=== PATIENT | female | born 1965 | race African-American/Black ===

== ENCOUNTER 2024-09-18 06:58 | Day surgery (SDC) | payer SELFPAY ==
[2024-09-18] VITALS (12 sets, daily range): BP systolic 74–136; BP diastolic 41–77; PULSE 50–63; RESP 16–18; TEMP 36.1–36.3; O2SAT 97–100; BMI 24.9
--- NOTE | 2024-09-18 06:49 | PCM.HP.BLA ---
History and Physical Date of Admission: 09/18/24 Date of Service: 09/17/24 MR#: [id number] Acct: [id number] Name: LEONORA TAVERAS Rep #: [id number] : 1965 Provider: Dr. Nickie West MD Age/Sex: 59/F Location: [facility] Status: Signed Intake Vital Signs 09/17/2508:38 Height 5 ft 5 in Weight: 152 lb 6 oz BMI 25.3 BP 133/71 H Blood Pressure Location Rt brachial Position Sitting Respiration 17 Pulse 64 Pulse Source Monitor Temp 97.5 F L Temp Source Temporal Pulse Oximetry (%) 99 Oxygen Delivery Method room air Intake Visit Reasons: LYMPH NODE BIOPSY- CONSULT-selfpay Chief Complaint: lymphnode biopsy Accompanied by: son and friend Is patient in pain?: No Allergies Quinolones Allergy (Mild, Verified 09/17/24 09:39) Rash Medications ?Medication ?Instructions ?Recorded ?Confirmed ?Type NATRIXAM 1 tab PO DAILY 09/10/24 09/17/24 History PFSH Medical History (Updated 09/17/24 @ 12:[address] Nickie West MD) Non-Hodgkin lymphoma Enlarged lymph nodes in armpit Wears glasses Post-menopausal Non-smoker History of echocardiogram Prediabetes HTN (hypertension) Surgical History S/P section S/P total abdominal hysterectomy Family History Mother HypertensionFather Diabetes Social History Smoking Status: Never smoker alcohol intake: never HPI HPI HPI: 59-year-old female presents for axillary lymph node excision due to non-Hodgkin's lymphoma. Patient's cousin does live in the area-Dr. Steph Keenan- and patient traveled from her home in [facility] for treatment. Patient has a upcoming appointment with oncology September 22, 2024. Patient had a percutaneous biopsy of abdominal lymph node which was consistent with non-Hodgkin's lymphoma and patient also had CT chest which showed bilateral axillary lymphadenopathy done previously in [facility]. Patient does admit to having some issues with headache with this did initially have some blood in the urine that started in the process of the workup-several months ago. ROS General General: Yes weight change and fatigue; No appetite, colon cancer, breast cancer or weakness HEENT HEENT: No difficulty swallowing, eye injury, eye surgery, swollen glands or hoarseness Endo Endocrine: No thyroid disease, diabetes mellitus, thyroid cancer, Hair loss, heat intolerance or cold intolerance Skin Skin: No rash or changing moles Musc Musculoskeletal: Yes back problems; No arthritis, rheumatoid arthritis, gout or joint pain Cardio Cardiovascular: Yes high blood pressure; No murmur, pacemaker, heart disease, atrial fibrillation, heart attack, heart stent, palpitations, shortness of breath with exertion or chest pain Psych Psychiatric: No depression, anxiety or hearing voices Resp Respiratory: No shortness of breath, No sleep apnea, No cough, No COPD, No asthma, No emphysema and No wheezing Gastro Gastrointestinal: No abdominal pain, No nausea or vomiting, No diarrhea, No constipation, No blood in stool, No acid reflux, No hemorrhoids, Yes ulcers, No gallbladder problem and No black,tarry stools Teofilo Hematologic: No blood thinners, No blood disorders, No bleeding, No anemia and No blood clots Neuro Neurologic: No numbness, No tingling and No weakness Exam Const General: cooperative, healthy appearing, comfortable and no acute distress HENMD Head: normocephalic and atraumatic Neck Neck: supple Chest Other: Bilateral axillary adenopathy more difficult to appreciate on the left than the right on exam but both axillas have adenopathy per CAT scan. Resp Effort & Inspection: normal respiratory effort Cardio Rate: regular rate GI Inspection: non-distended Skin General: no rashes or lesions noted Neuro General: CN's II-XI intact bilaterally Extrem General: normal to inspection Psych Mental Status: mental status grossly normal Attitude: cooperative Assessment and Plan Assessment and Plan (1) Non-Hodgkin lymphoma: Status: Acute (2) Enlarged lymph nodes in armpit: Status: Acute Plan Will plan for excision of right axillary lymph node in OR and send to pathology for further testing as requested per oncology for guidance of treatment. Discussed procedure including but not limited to risk of bleeding, infection, need for further procedure. Patient no current questions this time. Patient is scheduled for tomorrow for excision. Nickie West M.D. Pager: [phone] [facility] [address] [place] [address], [facility], [address] [place] [address] Office: [phone] Coding Level of Care Code Attention Mat Diagnoses Non-Hodgkin lymphoma C85.90 Enlarged lymph nodes in armpit R59.0 Comment level 3 new, but self pay with OR tomorrow-not sure if bundled 09/17/24 1220 <Electronically signed by Nickie West MD> Date Nickie West MD
--- NOTE | 2024-09-18 07:11 | PCM.PRE.AN2 ---
ASA Classification* ASA Classification ASA Classification: 2 Assessment & Plan Anesthesia* Anesthesia Assessment Anesthesia Assessment: Discussed sedation and/or anesthesia options, risks, benefits, and alternatives with patient/parents/legal guardian/POA. Questions invited. The patient/parents/legal guardian/POA seems to understand and agrees to proceed with anesthesia plan. Reviewed the physical assessment, medical history, allergy history and patient home medications list prior to surgery/procedure/anesthetic and documented any changes. Performed airway and anesthesia risk assessments. Anesthesia Type Anesthesia Type: MAC Anesthesia Focused Assessment* Airway Assessment Mouth opens: >3 cm Mallampati Score: II Focused Labs Anesthesia Preop lab: CBC CHEMISTRY COAG Pre-Assessment Diagnosis/Proposed Procedure Planned Operative Procedure(s): RIGHT POSS LEFT AXILLARY LYMPH NODE EXCISIONAL BIOPSY Anesthesia History Anesthesia History - imaging engineer: Anesthesia History - imaging engineer Hx Hospitalization Yes: 03/2024 PNEUMONIA 09/10/24 11:23 Any Problems With Anesthesia No 09/10/24 11:23 Cholinesterase deficiency No 09/10/24 11:23 You/Your Family Experience No 09/10/24 11:23 fever (hyperthermia) with Relationship Recent Exposure to Contagious Disease Does patient have nerve No 09/10/24 11:23 stimulator Patient instructed to have device shut off --Does patient have Pacemaker or ICD? When Was Last Pacemaker Check QUESTION #4 FULL TEXT: You/Your Family Experience fever (hyperthermia) with Anesthesia Last Oral Intake Last Oral intake: Last Oral Intake NPO since Meds taken in AM with sips of water? Meds patient instructed to take am of surgery PONV PONV - imaging engineer: PONV - imaging engineer Female Yes 09/10/24 11:23 HX of Motion Sickness No 09/10/24 11:23 HX of N/V After Surgery No 09/10/24 11:23 Non-Smoker Yes 09/10/24 11:23 Duration of Surgery greater Yes 09/10/24 11:23 than 60 minutes Number of Risk Factors 3 09/10/24 11:23 PONV Score Moderate Risk 09/10/24 11:23 Height & Weight Height & Weight: Anesthesia: Height & Weight Height 5 ft 5 in 09/17/24 09:38 Respiratory Assessment Respiratory Assessment - imaging engineer: Respiratory Tract Infection Hx - imaging engineer Hx Respiratory Tract Infection No 09/10/24 11:23 STOP Sleep Apnea STOP Sleep Apnea - imaging engineer: STOP Sleep Apnea - imaging engineer Hx Hypertension Yes: CONTROLLED WITH MED 09/10/24 11:23 Hx Sleep Apnea No 09/10/24 11:23 CPAP BIPAP Do you snore loudly (louder No 09/10/24 11:23 than talking or can be heard Do you often feel tired/ No 09/10/24 11:23 fatigued/ sleepy during daytime? Has anyone observed you stop No 09/10/24 11:23 breathing during sleep? STOP Results Negative 09/10/24 11:23 QUESTION #5 FULL TEXT : Do you snore loudly (louder than talking or can be heard through closed doors)? Tobacco Use History Tobacco Use History - imaging engineer: Tobacco Use History - imaging engineer Tobacco Use Smoking Status Never smoker 09/10/24 11:23 Hx Tobacco Use No 09/10/24 11:23 Years Smoking Packs Smoked per Day Smoking Cessation Date was within the last 15 years Hx Smoking Cessation Date Hx Smoking Cessation Counseling Hematologic Medial History Hematologic Hx - imaging engineer: Hematologic Medical Hx - apparel merchandiser Hx of Blood Transfusion No 09/10/24 11:23 Hx of Transfusion in last 3 No 09/10/24 11:23 Months Date of Last Transfusion (if within last 3 months) Ever experience any problems No 09/10/24 11:23 with transfusion(s)? Specify any problems Hx of Preganancy in last 3 No 09/10/24 11:23 Months Nurse Filling Out Transfusion DSCHRIBER 09/10/24 11:23 & Questions: Date: 09/10/24 09/10/24 11:23 Time: 11:09/10/24 11:23 Patient unable to answer at this time (ie. confused, unrespo /Reproduction History /Reproductive History - imaging engineer: /Reproductive Hx- imaging engineer Hx Now No 09/10/24 11:23 Gestational Age (in weeks): EDC: Hx Hx Para Hx Section SAB No 09/10/24 11:23 Active Medications Active Medications: Current Medications Generic Name Dose Route Start Last Admin Trade Name Freq PRN Reason Stop Dose Admin Cefazolin Sodium 2 gm/ Sodium 110 mls @ 150 mls/hr 09/18/24 10:00 Chloride IV 09/18/24 10:43 INTRAOP ONE Lactated Ringer's 1,000 mls @ 15 mls/hr 09/18/24 07:15 IV .Q48H NADJA PFSH Medical History Non-Hodgkin lymphoma Enlarged lymph nodes in armpit Wears glasses Post-menopausal Non-smoker History of echocardiogram Prediabetes HTN (hypertension) Home Medications ?Medication ?Instructions ?Recorded ?Last Taken ?Type NATRIXAM 1 tab PO DAILY 09/10/24 Unknown History Allergy/AdvReac Type Severity Reaction Status Date / Time Quinolones Allergy Mild Rash Verified 09/17/24 09:39 Family History Mother Hypertension Father Diabetes Surgical History S/P section S/P total abdominal hysterectomy Social History Smoking Status: Never smoker alcohol intake: never Review of Systems (Anesthesia) ROS Narrative System reviewed and no additional complaints, except as documented.
--- NOTE | 2024-09-18 07:30 | AXNB_PTH ---
PATIENT: LEONORA TAVERAS LOC: [facility] [place] U#:[id number] AGE/SX: 59/F ROOM: RE09/18/[address]: Dr. Nickie West MD : 1965 BED: DIS: 09/18/2024 SPEC #: [id number] RECD: 09/18/24 08:14 STATUS: NABIL REMarie #: [id number] ARTURO: 09/18/24 07:[address]: Nickie West DEPT: SURGICAL PATHOLOGY RECD BY: Arnulfo Solitario ENTERED: 09/18/24 08:36 SP TYPE: AX NODE BX OTHR DR: No Primary Care Phys Tissues: A - Axillary lymph node, NOS Procedures: Frozen Section (charge) Surgery Specimen Level IV HEADER OPERATION: Excision, lymph node right axillary lymph node excisional biopsy PRE-OP DIAGNOSIS: Non-Hodgkin lymphoma, enlarged lymph nodes in armpit TISSUE SUBMITTED: A- Right axilla lymph node FROZEN SECTION DIAGNOSIS A. Right axilla, excisional biopsy: Atypical lymphoid proliferation. MS/mr 09/18/2024 MICROSCOPIC DIAGNOSIS A. Right axilla, lymph node, excisional biopsy: * Atypical lymphoid proliferation. * Further evaluation is pending expert consultation with [facility]. * A separate consultation report will follow. MICROSCOPIC DESCRIPTION Slides are reviewed. GROSS DESCRIPTION A. Received fresh for intraoperative consultation in a container labeled with the patient's name, date of , and right axilla node is a 1.3 x 1.0 x 1.0 cm fleshy and see-pink lymph node candidate. Sectioning reveals suspicious and pale surfaces. A portion is submitted in [facility] for flow cytometry; a report will follow. 2 touch preps are made, and a portion is submitted for frozen section analysis. Received in the same container are 2 see-yellow fragments of unremarkable fatty tissue measuring 1.5 and 2.0 cm in greatest dimension. No additional lymph node candidates are identified. The fat is retained, and the lymph node is submitted entirely as follows:A1. Frozen section remnantA2. Lymph node candidateA3. Scrap Kettle Tender sections of additional submitted fat B 09-18-2024 CPT:[id number] ADDENDUM ADDENDUM ADDENDUM ADDENDUM ADDENDUM ADDENDUM ADDENDUM ADDENDUM ADDENDUM ADDENDUM ADDENDUM ADDENDUM ADDENDUM ADDENDUM ADDENDUM 09/30/2024 13:40 ADDENDUM 09/30/2024 13:40 ADDENDUM 09/30/2024 13:40 ADDENDUM 09/30/2024 13:40 ADDENDUM 09/30/2024 13:40 This addendum is added to incorporate an outside pathology consultation report. The case was examined at [facility] by Dr. Valle (#[id number]) and the following diagnosis was rendered. A. Right axilla, excisional biopsy: Small lymphocytic lymphoma with variant immunophenotype, see comment. COMMENT: Combined morphologic and IHC findings are consistent with small lymphocytic lymphoma (SLL) with variant immunophenotype (moderate CD20 and lambda expression, positive CD2 and FMC7 staining). Proliferative centers are increased but show no fusion. There is no evidence of large cell transformation and SIMI for NEEL is negative. Please see complete above mentioned consultation report in EMR
[2024-09-18] MEDS: Lactated Ringers 1,000 ML 15 ML IV (07:31)
[2024-09-18] MEDS: Cefazolin 2 GM in 0.9% Normal Saline (100mL Bag) 100 ML IV (07:38)
[2024-09-18] MEDS: Bupivacaine Mpf 0.5% 30 ML VIAL (08:13)
--- NOTE | 2024-09-18 08:13 | OP.PCM_ITS ---
Operative Report (Standard) Operative Information Date of Procedure: 09/18/24 Pre-Operative Diagnosis: Non-Hodgkin's lymphoma, axillary adenopathy Post-Operative Diagnosis: Same Surgery/Procedure Performed: Right axillary lymph node excisional biopsy home child care provider: Yes Grain Origination Specialist: Yudith Ace Tasks completed by grants and contracts assistant: Opening & closing and Retracting Type of Anesthesia: Local MAC RN Documented Start/Stop Times: Operation Date: 09/18/24 07:30 Case Time Into Pre-Op 09/18/24 07:05 Out of Pre-Op 09/18/24 07:35 Anesthesia Start 09/18/24 07:38 Into Room 09/18/24 07:38 Procedure Start 09/18/24 07:54 Procedure End 09/18/24 08:17 Anesthesia End 09/18/24 08:24 Out of Room 09/18/24 08:24 Into Recovery 09/18/24 08:26 Into Phase II Recovery 09/18/24 09:14 Out of Recovery 09/18/24 09:14 Out of Phase II 09/18/24 10:07 Procedure Start Time: 07:54 Procedure Stop Time: 08:17 Select all DRAINS/GRAFTS/IMPLANTS that apply: None Special Medications: Ancef 2 g IV x 1 Estimated Blood Loss: < 10 cc Specimen collected: Yes Description of specimen(s) removed: Right axillary lymph node Description of surgery: Patient brought operating room and placed spine operating table. Timeout was completed verifying correct patient, procedure, positioning, special, prior to beginning procedure. MAC anesthesia was induced. Right axilla was prepped and draped in usual sterile fashion. Ultrasound is used to identify targeted lymph node. Local anesthesia was used over the planned incision site with a 15 blade scalpel. This was deepened with electrocautery. A larger lymph node as well as a smaller 1 was sent to pathology fresh. Cavity was checked for hemostasis was achieved with electrocautery. Cavity was irrigated. Incision was closed with 3-0 Vicryl suture subdermal interrupted. And skin was closed with subcuticular 4-0 Monocryl and Dermabond. OpSite was also placed over. Patient tolerated procedure well taken to the postanesthesia care in stable condition. Surgical Findings: See operative report Complications Complications: No
--- NOTE | 2024-09-18 08:38 | PCM.POST.ANE ---
Anesthesia: Postop Eval I Current Vital Signs Temperature: 97.3 F Pulse Rate: 55 Blood Pressure: 84/55 Respiratory Rate: 16 Pulse Ox: 100 Oxygen Delivery Method: Venturi Mask Oxygen Flow Rate (L/min): 6 Assessment Airway patent: Yes Spontaneous unlabored respirations: Yes Mental status: Calm nausea: No Vomiting: No Anesthesia Complication: No Fluid Hydration Crystalloid volume administer (ml): 700 Total IV fluid infused: 700 Progress Note Anesthesia document: Postop Eval 1 completed: Yes
--- NOTE | 2024-09-18 08:44 | EX.PCM.DISCH ---
Discharge Instructions Diet Discharge Diet: No restrictions Activity Discharge Activity: May Not Drive (while taking narcotic pain meds.) May shower in (days): 1 Lifting Restrictions: No lifting greater than 20 pounds on the right x 1 week Dressing / Incision Call your doctor if your incision/area has: Continuous Slow Oozing, Sudden Increased Bleeding, Increased Pain/ Swelling and Increased Redness Call your doctor if you observe: Fever of 101 or Higher Suture Line Care: Avoid Pulling/Pushing and Avoid Pinching/Bending Remove Dressing in: 1 day (OpSite can be removed, Dermabond underneath) Additional Dressing/Incision Instructions:: Dermabond (glue) was used at the axillary incision this may start to peel off in about 5 days. Follow Up Care Please Follow Up With: Nickie West MD When: Please call [phone] for an appointment to be seen in 2 week-?if no concerns about incision may also cancel appointment. Test Results: Test results from this visit will be discussed in further detail at your follow-up appointment, if applicable. Discharge Plan Admission Attending Provider: Nickie West Primary Care Provider: Care Physician,Josee Primary Instructions Print Language: Nigerian Discharge Orders/Prescriptions Prescriptions: New tramadol 50 mg tablet 50 mg PO Q6H PRN (Reason: pain) 2 Days Qty: 5 0RF Continued NATRIXAM 1 tab PO DAILY Rx Instructions: AMLODIPINE 5 MG INDAPAMIDE 1.5 MG DAILY/COMBINATION MED Referrals / Follow Up: Care Physician,No Primary [Primary Care Provider] - Disposition Disposition (needs filled in before D/C Order can be placed): Home, Self Care
--- NOTE | 2024-09-18 08:45 | POSTOPAN2_ITS ---
Anesthesia Postop Eval I Sum Postop Eval Completion status Anesthesia document: Postop Eval 1 completed: Yes Anesthesia Postop Eval I Summary Anesthesia Postop Eval I Summary: Anesthesia Postop Eval I: Assessment Summary Airway patent Yes 09/18/24 08:39 ENERGY ANALYST.LMIL Spontaneous unlabored Yes 09/18/24 08:39 ENERGY ANALYST.LMIL respirations Mental status Calm 09/18/24 08:39 ENERGY ANALYST.LMIL nausea No 09/18/24 08:39 ENERGY ANALYST.LMIL Vomiting No 09/18/24 08:39 ENERGY ANALYST.LMIL Anesthesia Postop Eval I: Fluid Summary Crystalloid volume administer 700 09/18/24 08:39 ENERGY ANALYST.LMIL (ml) Colloids volume administered ( ml) Blood Product volume administered (ml) Total IV fluid infused 700 09/18/24 08:39 ENERGY ANALYST.LMIL Anesthesia Postop Eval I: Summary Notes Anesthesia Complication No 09/18/24 08:39 ENERGY ANALYST.LMIL Anesthesia Complication Comment: Post-operative progress note Anesthesia: Postop Eval II Evaluation Mental status: Awake Pain Level: 0 nausea: No Vomiting: No
--- NOTE | 2024-09-18 08:45 | PCM.POSTANE2 ---
Anesthesia Postop Eval I Sum Postop Eval Completion status Anesthesia document: Postop Eval 1 completed: Yes Anesthesia Postop Eval I Summary Anesthesia Postop Eval I Summary: Anesthesia Postop Eval I: Assessment Summary Airway patent Yes 09/18/24 08:39 CMV DRIVER.LMIL Spontaneous unlabored Yes 09/18/24 08:39 CMV DRIVER.LMIL respirations Mental status Calm 09/18/24 08:39 CMV DRIVER.LMIL nausea No 09/18/24 08:39 CMV DRIVER.LMIL Vomiting No 09/18/24 08:39 CMV DRIVER.LMIL Anesthesia Postop Eval I: Fluid Summary Crystalloid volume administer 700 09/18/24 08:39 CMV DRIVER.LMIL (ml) Colloids volume administered ( ml) Blood Product volume administered (ml) Total IV fluid infused 700 09/18/24 08:39 CMV DRIVER.LMIL Anesthesia Postop Eval I: Summary Notes Anesthesia Complication No 09/18/24 08:39 CMV DRIVER.LMIL Anesthesia Complication Comment: Post-operative progress note Anesthesia: Postop Eval II Evaluation Mental status: Awake Pain Level: 0 nausea: No Vomiting: No
--- NOTE | 2024-09-18 08:46 | PCM.POST.ANE ---
Anesthesia: Postop Eval I Current Vital Signs Temperature: 97.3 F Pulse Rate: 55 Blood Pressure: 84/55 Respiratory Rate: 16 Pulse Ox: 100 Assessment Airway patent: Yes Spontaneous unlabored respirations: Yes nausea: No Vomiting: No Anesthesia Complication: No Fluid Hydration Crystalloid volume administer (ml): 700 Total IV fluid infused: 700 Progress Note Post-operative progress note: Zofran 4 mg given IV at 07:45 and Decadron 8 mg IV at 07:49 Anesthesia document: Postop Eval 1 completed: Yes
== END 2024-09-18 10:07 | disposition home or self-care (01) ==
LOC: SDC 07:11 → AC 07:11
PROVIDERS: Visit Provider Surgery
PROC: (CPT 38500; principal; 2024-09-18 07:15)
DX: C83.04 Small cell B-cell lymphoma, lymph nodes of axilla and upper limb (principal); C85.93 Non-Hodgkin lymphoma, unspecified, intra-abdominal lymph nodes; I10 Essential (primary) hypertension; Z79.899 Other long term (current) drug therapy
CPT/HCPCS: 38525; 88305; 88331; J2405

== ENCOUNTER → 2024-10-16 | Outpatient (CLI) | payer SELFPAY ==
--- NOTE | 2024-10-16 08:37 | US_ITS ---
PROCEDURE: BREAST LIMITED UNILATERAL 10/16/2024 REASON FOR EXAM: RIGHT BREAST PAIN; ABNORMAL PET TECHNIQUE: Targeted right breast ultrasound. COMPARISON: Prior mammogram done earlier in the day. FINDINGS: Right breast ultrasound was targeted to the upper-outer quadrant of the right breast.. Several small lymph nodes are seen in the right axilla. The largest measures 1.6 cm 1.6 cm x 0.8 cm. This lymph node is at the 11 o'clock position of the breast at 9 cm from the nipple. A tissue clip marker is seen within it. The mammographic findings most likely correspond to asymmetrical breast tissue. No definite mass is seen. US/Breast Limited Unilateral IMPRESSION: The abnormality seen in the mammogram most likely represents asymmetrical breas t tissue. No mass is seen. Follow-up code: BI-RADS category 2. Reading Location: [place] [address]
--- NOTE | 2024-10-16 08:37 | BI_ITS ---
EXAM: DIAG MAMM W/CAD, BILAT 10/16/2024 CLINICAL HISTORY: F, Age 59 y/o , RIGHT BREAST PAIN, ABNORMAL PET/CT History of non-Hodgkin's lymphoma. TECHNIQUE: Bilateral Diagnostic digital breast tomosynthesis with 2D and 3D images. Computer aided detection. COMPARISON: Prior exam(s) dated prior mammogram not available for comparison.. FINDINGS: TISSUE DENSITY: The breast tissue is composed of scattered area of fibroglandular density. Bilateral Breast Mammographic Findings: Surgical is seen in the right axilla. Enlarged lymph nodes. There is asymmetrical breast tissue in the upper lateral aspect of the right breast. Can not rule out a small mass. Targeted sonographic correlation recommended. BI/DIAG MAMM W/CAD, BILAT IMPRESSION: OVERALL FINAL ASSESSMENT: BIRADS 0 Incomplete: Need additional imaging evaluati on and/or prior mammograms for comparison.. RECOMMENDATION: Targeted sonographic correlation in the upper lateral aspect of the right breas t for further evaluation. A letter with findings and recommendations will be mailed to the patient. Reading Location: [place] [address]
== END | disposition home or self-care (01) ==
LOC: OPBI 08:30
PROVIDERS: Referring Provider Nurse Practitioner Family; Visit Provider Nurse Practitioner Family
DX: N64.4 Mastodynia (principal); R94.8 Abnormal results of function studies of other organs and systems
CPT/HCPCS: 76642; 77062; 77066; G0279